=== PATIENT | female | born 1985 | race Caucasian/White ===

== ENCOUNTER 2019-04-12 15:08 | Inpatient (IN) | payer SELFPAY ==
[~2019-04-12] VITALS: Ht 157.5 cm; Wt 78.0 kg
[2019-04-12] MEDS: LACTATED RINGERS 1,000 ML IV SCH ×2 (01:44→02:43)
[2019-04-12] MEDS ORDERED: MISOPROSTOL 25 MCG TAB VG PRN (15:45)
[2019-04-12] MEDS ORDERED: CARBOPROST 250 MCG/ML AMP IM PRN (15:45)
[2019-04-12] MEDS ORDERED: METHYLERGONOVINE 0.2 MG/ML AMP IM PRN (15:45)
[2019-04-12] MEDS ORDERED: PROMETHAZINE 25 MG/ML VIAL IVP PRN (15:45)
[2019-04-12] MEDS ORDERED: OXYTOCIN 10 UNITS/ML VIAL IM SCH (15:45)
[2019-04-12] MEDS ORDERED: NALBUPHINE 10 MG/ML AMP IVP PRN (15:45)
[2019-04-12 16:15] LABS: BASOPHILS % (AUTO) 0.3 % (0.0-2.0); EOSINOPHILS # (AUTO) 0.1 K/uL (0-0.4); EOSINOPHILS % (AUTO) 1.1 % (0.0-4.0); HEMATOCRIT 36.3 % (36-48); HEMOGLOBIN 11.9 g/dL (12.0-16.0); LYMPHOCYTES # (AUTO) 1.8 K/uL (2.5-16.5); LYMPHOCYTES % (AUTO) 20.7 % (20.5-51.1); MEAN CORPUSCULAR HEMOGLOBIN 28 pg (27-31); MEAN CORPUSCULAR HGB CONC 33 g/dL (33-37); MEAN CORPUSCULAR VOLUME 86.4 fL (80-94); MONOCYTES # (AUTO) 0.4 K/uL (0.8-1.0); MONOCYTES % (AUTO) 4.9 % (1.7-9.3); NEUTROPHILS # (AUTO) 6.4 K/uL (1.8-7.7); PLATELET COUNT (AUTO) 234 K/uL (140-450); RED CELL DISTRIBUTION WIDTH 17.5 % (11.6-13.7); WHITE BLOOD COUNT (AUTO) 8.7 K/uL (4.8-10.8)
[2019-04-12 16:37] LABS: ANION GAP 18.6 (8-16); CARBON DIOXIDE 19.8 mmol/L (21-32); CREATININE 0.6 mg/dL (0.6-1.3); POTASSIUM 3.4 mmol/L (3.5-5.1)
[2019-04-12 16:43] LABS: ALBUMIN 2.5 g/dL (3.4-5.0); TOTAL BILIRUBIN 0.2 mg/dL (0.0-1.0)
[2019-04-12 16:47] LABS: APPEARANCE,URINE CLEAR (CLEAR); BILIRUBIN,URINE NEGATIVE (NEGATIVE); BLOOD, URINE NEGATIVE (NEGATIVE); COLOR,URINE YELLOW (YELLOW); LEUKOCYTE ESTERASE ,URINE NEGATIVE (NEGATIVE); NITRITE, URINE NEGATIVE (NEGATIVE); UGLUCOSE 1+ (NEGATIVE)
[2019-04-12] MEDS ORDERED: AMPICILLIN 2,000 MG VIAL ONE (17:03)
[2019-04-12] MEDS ORDERED: AMPICILLIN 2,000 MG in NACL 0.9% MINI-BAG PLUS 100 ML IV SCH (17:40)
[2019-04-12] MEDS ORDERED: OXYTOCIN 20 UNITS in LACTATED RINGERS 1,000 ML IV SCH (20:00)
[2019-04-12] MEDS ORDERED: AMPICILLIN 2,000 MG in NACL 0.9% 100 ML IV SCH (20:00)
[2019-04-12] MEDS ORDERED: OXYTOCIN 20 UNITS/LR PREMIX 1,000 ML IV ONE (20:46)
[2019-04-12] MEDS ORDERED: AMPICILLIN 1,000 MG VIAL ONE (21:02)
[2019-04-12] MEDS: AMPICILLIN 1,000 MG in NACL 0.9% MINI-BAG PLUS 50 ML IV SCH (21:06)
[2019-04-13] MEDS ORDERED: NALBUPHINE 10 MG/ML AMP ONE (00:40)
[2019-04-13] MEDS ORDERED: AMPICILLIN 1,000 MG VIAL ONE ×2 (00:41→04:35)
[2019-04-13] MEDS ORDERED: PROMETHAZINE 25 MG/ML VIAL ONE (00:41)
[2019-04-13] MEDS: AMPICILLIN 1,000 MG in NACL 0.9% MINI-BAG PLUS 50 ML IV SCH (01:00)
[2019-04-13] MEDS ORDERED: ROPIVACAINE 0.2%/NS PREMIX 100 ML EPI ONE (05:00)
[2019-04-13] MEDS ORDERED: LIDOCAINE 1% 500 MG/50 ML VIAL ONE (08:41)
--- NOTE | 2019-04-13 08:52 | NUR ---
PATIENT HAS BEEN SCREENED AND CATEGORIZED LOW NUTRITION RISK. PATIENT WILL BE SEEN WITHIN 7 DAYS OF ADMISSION. 04/19/[address]
[2019-04-13] MEDS ORDERED: IBUPROFEN 800 MG TAB PO PRN (08:55)
[2019-04-13] MEDS ORDERED: BENZOCAINE/MENTHOL 20%-0.5% 60 GM CAN TP PRN (08:55)
[2019-04-13] MEDS ORDERED: METHYLERGONOVINE 0.2 MG TAB PO PRN (08:55)
[2019-04-13] MEDS ORDERED: MEASLES, MUMPS, AND RUBELLA 1 VIAL SQVAC PRN (08:55)
[2019-04-13] MEDS ORDERED: OXYTOCIN 10 UNITS/ML VIAL IM PRN (08:55)
[2019-04-13] MEDS ORDERED: METHYLERGONOVINE 0.2 MG/ML AMP IM PRN (08:55)
[2019-04-13] MEDS ORDERED: LIDOCAINE MPF 1% 10 MG/ML VIAL INJ SCH (10:15)
[2019-04-14 07:07] LABS: HEMATOCRIT 35.4 % (36-48); HEMOGLOBIN 11.2 g/dL (12.0-16.0)
[2019-04-14] MEDS ORDERED: INFLUENZA VACCINE QUAD 0.5 ML SYR IM PRN (12:25)
== END 2019-04-14 16:25 | disposition home or self-care (01) | DRG 807 ==
LOC: MLD 15:08 → MFCC 04-13 11:30
PROVIDERS: ADMIT Obstetrics & Gynecology; ATTEND Obstetrics & Gynecology
PROC: 10E0XZZ Delivery of Products of Conception, External Approach (ICD-10-PCS; principal; 2019-04-13)
PROC: 0HQ9XZZ Repair Perineum Skin, External Approach (ICD-10-PCS; 2019-04-13)
PROC: 00HU33Z Insertion of Infusion Device into Spinal Canal, Percutaneous Approach (ICD-10-PCS; 2019-04-13)
PROC: 3E0R3BZ Introduction of Anesthetic Agent into Spinal Canal, Percutaneous Approach (ICD-10-PCS; 2019-04-13)
DX: O41.03X0 Oligohydramnios, third trimester, not applicable or unspecified (principal); Z37.0 Single live birth; Z3A.40 40 weeks gestation of pregnancy; O48.0 Post-term pregnancy; O70.0 First degree perineal laceration during delivery; O99.824 Streptococcus B carrier state complicating childbirth
CPT/HCPCS: 36415; 51702; 59409; 80053; 81003; 85018; 85025; 86592; 86886; 86900; 86901; J0290; J2001; J2300; J2550; J2590; J2795; J7120